=== PATIENT | female | born 1990 | race Caucasian/White ===

== ENCOUNTER 2017-04-23 12:48 | Emergency (ER) | payer OTHER ==
[2017-04-23 13:08] VITALS: BP 143/95; PULSE 88; TEMP 98; BMI 33.5
[2017-04-23] MEDS ORDERED: IBUPROFEN 600 MG TABLET (FP) PO ONE ×2 (14:53→14:54)
--- NOTE | 2017-04-23 14:53 | PDOC ---
History of Present Illness - General Chief Complaint: Sore Throat Stated Complaint: SORE THROAT Time Seen by Provider: 04/23/17 14:47 Past History - Past Medical History Allergies/Adverse Reactions: Allergies Allergy/AdvReac Type Severity Reaction Status Date / Time No Known Drug Allergies Allergy Verified 04/23/17 13:05 strawberry Allergy Hives Verified 04/23/17 13:05 Home Medications: Ambulatory Orders Fluticasone Prop 0.05% Nasal [Flonase -] 1 - 2 spray NS DAILY #1 spray.pump Asthma: Yes (no meds since 2009) Cancer: No Cardiac Disorders: No CVA: No COPD: No Diabetes: No HTN: No Seizures: No Thyroid Disease: No - Immunization History Immunization Up to Date: Yes - Suicide/Smoking/Psychosocial Hx Smoking History: Never smoked Have you smoked in the past 12 months: No Number of Cigarettes Smoked Daily: 0 Information on smoking cessation initiated: No Hx Alcohol Use: No Drug/Substance Use Hx: No Substance Use Type: None Hx Substance Use Treatment: No *Physical Exam - Vital Signs Last Vital Signs Temp Pulse Resp BP Pulse Ox 98.0 F 88 16 143/95 98 04/23/17 13:05 04/23/17 13:05 04/23/17 13:05 04/23/17 13:05 04/23/17 13:05 *DC/Admit/Observation/Transfer Diagnosis at time of Disposition: Pharyngitis Qualifiers: Pharyngitis/tonsillitis etiology: unspecified etiology Qualified Code(s): J02.9 - Acute pharyngitis, unspecified - Discharge Dispostion Disposition: HOME Condition at time of disposition: Good Admit: No - Referrals Referrals: Moses Peterson MD [Staff Physician] - - Patient Instructions Printed Discharge Instructions: DI for Pharyngitis/Tonsillopharyngitis -- Adult Additional Instructions: You have a sore throat that is not caused by strep throat. Your testing was negative today. Please take Motrin or Tylenol as needed for pain or fevers. Warm drinks such as tea, honey and cough drops should help your symptoms. You were also prescribed Flonase. Please use one spray in each nostril twice a day to help with your ear pain. Please follow up with your primary care doctor if your symptoms do not resolve. Return to the ED if you have difficulty swallowing, difficulty breathing, are drooling, worsening pain, fevers, or have any changes in your symptoms. - Post Discharge Activity
== END 2017-04-23 16:03 | disposition home or self-care (01) ==
LOC: JERFT 12:48
DX: J02.9 Acute pharyngitis, unspecified (principal)
CPT/HCPCS: 87070; 87430; 99281-25